=== PATIENT | male | born 1995 | race Caucasian/White ===

== ENCOUNTER 2020-06-16 09:31 | Outpatient (CLI) | payer OTHER, SELFPAY ==
[2020-06-16 09:44] LABS: Hematocrit 46.1 % (40.0-54.0); Hemoglobin 15.1 g/dL (14.0-18.0); Mean Corpuscular HGB Conc 32.8 g/dL (32.0-36.0); Mean Corpuscular Hemoglobin 28.8 pg (27.0-31.0); Mean Platelet Volume 10.2 fl (8.7-11.0); Platelet Count Result 210 K/mm3 (150-420); Red Blood Count 5.24 M/mm3 (4.70-6.10); Red Cell Distribution Width 12.4 % (11.6-14.4); White Blood Count 7.6 K/mm3 (4.8-10.8)
[2020-06-16 10:22] LABS: Alanine Aminotransferase 18 U/L (16-63); Albumin Level 4.4 g/dL (3.4-5.0); Alkaline Phosphatase 72 U/L (46-116); Anion Gap 8 mmol/L (8-16); Aspartate Amino Transferase 26 U/L (15-37); Bilirubin,Total 0.5 mg/dL (0.00-1.00); Blood Urea Nitrogen 15 mg/dL (7-18); Carbon Dioxide 29 mmol/L (21-32); Chloride 102 mmol/L (98-108); Estimated Glomerular Filt Rate > 60; Glucose 95 mg/dL (70-99); Osmolality Calculated 288 mOsm/kg (285-295); Potassium 4.4 mmol/L (3.5-5.1); Sodium 139 mmol/L (136-145); Total Protein 8.1 g/dL (6.4-8.2)
[2020-06-16 10:50] LABS: Thyroid Stimulating Hormone Reflex 1.08 u/IU/mL (0.36-3.74)
== END 2020-06-16 09:32 | disposition home or self-care (01) ==
PROVIDERS: PCP Family Medicine; Visit Provider Family Medicine
DX: R62.7 Adult failure to thrive (principal); F39 Unspecified mood [affective] disorder
CPT/HCPCS: 36415; 80053; 84443; 85027